=== PATIENT | female | born 1995 | race Caucasian/White ===

== ENCOUNTER 2019-09-21 11:25 | Emergency (ER) | payer BC ==
[~2019-09-21] VITALS: Ht 167.6 cm; Wt 87.0 kg
[~2019-09-21 11:25] MED LIST: NORC1TAB7 PO; excedrin
[2019-09-21 12:25] LABS: BASO % 0.2 % (0.0-1.0); EOS # 0.2 10^3/uL (0.0-0.5); EOS % 1.7 % (0.0-3.0); HEMATOCRIT 42.8 % (36.0-47.0); HEMOGLOBIN 14.3 g/dl (12.0-15.5); LYMPH # 3.5 10^3/uL (1.5-5.0); MEAN CORPUSCULAR HEMOGLOBIN 29.2 pg (27.0-33.0); MEAN CORPUSCULAR HGB CONC 33.4 g/dl (32.0-36.5); MEAN CORPUSCULAR VOLUME 87.3 fl (80.0-96.0); MONO # 0.7 10^3/uL (0.0-0.8); MONO % 6.8 % (0.0-5.0); NEUTROPHILS # 6.4 10^3/uL (1.5-8.5); NEUTROPHILS % 58.9 % (36.0-66.0); PLATELET COUNT, AUTOMATED 274 10^3/uL (150-450); WHITE BLOOD COUNT 10.9 10^3/uL (4.0-10.0)
[2019-09-21 12:59] LABS: ALBUMIN 3.8 GM/DL (3.2-5.2); ALT/SGPT 18 U/L (12-78); BILIRUBIN,DIRECT 0.1 MG/DL (0.0-0.2); BILIRUBIN,TOTAL 0.3 MG/DL (0.2-1.0); BLOOD UREA NITROGEN 15 MG/DL (7-18); CARBON DIOXIDE LEVEL 24 MEQ/L (21-32); CHLORIDE LEVEL 109 MEQ/L (98-107); CREATININE FOR GFR 0.87 MG/DL (0.55-1.30); GLOMERULAR FILTRATION RATE > 60.0 (>60); GLUCOSE, FASTING 84 MG/DL (70-100); LIPASE 193 U/L (73-393); POTASSIUM SERUM 4.1 MEQ/L (3.5-5.1); SODIUM LEVEL 140 MEQ/L (136-145); TOTAL PROTEIN 7.3 GM/DL (6.4-8.2)
[2019-09-21 13:02] LABS: HCG, SERUM QUALITATIVE NEGATIVE (NEGATIVE)
--- NOTE | 2019-09-21 14:22 | REP ---
Clinical: Left lower quadrant pain . Technique: Transabdominal pelvic ultrasound with color Doppler evaluation of the ovaries. Findings: Bladder is unremarkable and measures 8.3 x 5.4 x 7.5 cm . Normal anteverted/right lateral uterus measures 10.4 x 4.0 x 7.1 cm . The endometrial complex measures 15.1 mm thickness. No discrete uterine or endometrial abnormalities are appreciated. Bilateral ovaries are normal in appearance and vascularity without evidence for torsion. Right ovary measures 4.1 x 3.0 x 2.8 cm ; R I = 0.43 . Left ovary measures 3.6 x 2.8 x 2.8 cm ; R I = 0.57 . Trace pelvic free fluid nonspecific and likely physiologic. Impression: 1. normal pelvic ultrasound. Electronically Signed by John De La Torre MD 09/21/2019 02:14 P
[2019-09-21] MEDS ORDERED: IBUPROFEN 600 MG TAB PO ONE (15:00)
[2019-09-21] MEDS ORDERED: ISOVUE-370 76% 100ML VIAL (Q9967) As Ordered ONE (15:18)
--- NOTE | 2019-09-21 15:52 | REP ---
Clinical: Left lower quadrant pain. Technique: Axial contrast enhanced images from the lung bases to the pubic symphysis with coronal and sagittal re-formations using 100 ml Isovue 370 intravenous contrast material. Findings: Liver, spleen, pancreas, gallbladder, bilateral adrenal glands and kidneys are normal. The enteric system is without obstruction or acute inflammatory process. Pelvis demonstrates normal bladder and prominent appearance to the uterus with small amount of free fluid suggesting physiologic changes related to menstrual cycle and possibly related to patient's symptoms. No significant ascites. No free air. No adenopathy. A dominant aorta and vasculature normal. Musculoskeletal structures are intact. Lung bases are clear. Impression: 1. Pelvic findings likely physiologic, related to menstrual cycle and possibly related to patient's symptoms. 2. No significant acute abdominopelvic pathology otherwise appreciated. Electronically Signed by John De La Torre MD 09/21/2019 03:43 P
[2019-09-21 16:28] VITALS: BP 129/87
== END 2019-09-21 16:54 | disposition home or self-care (01) ==
LOC: M ED 11:25
DX: R10.2 Pelvic and perineal pain (principal); R11.0 Nausea; Z87.42 Personal history of other diseases of the female genital tract
CPT/HCPCS: 36415; 74177; 76856; 80048; 80076; 81001; 83690; 84703; 85025; 99284; Q9967